=== PATIENT | female | born 1940 ===

== ENCOUNTER 2023-02-02 06:00 | Outpatient (RCR) | payer MEDICARE, SELFPAY | END 2023-02-02 23:59 | disposition home or self-care (01) | LOC: GOT 06:00 | PROVIDERS: Visit Provider Orthopaedic Surgery | DX: M79.644 Pain in right finger(s) (principal) | CPT/HCPCS: 97110; 97140; 97166 ==

== ENCOUNTER 2023-02-03 06:00 | Outpatient (RCR) | payer MEDICARE, SELFPAY | END 2023-03-04 23:59 | disposition home or self-care (01) | LOC: GOT 06:00 | PROVIDERS: Visit Provider Orthopaedic Surgery | DX: M79.644 Pain in right finger(s) (principal) | CPT/HCPCS: 97110; 97140 ==